=== PATIENT | male | born 1955 | race Caucasian/White ===

== ENCOUNTER 2024-12-06 10:12 | Outpatient (CLI) | payer MEDICARE, OTHER, SELFPAY ==
--- NOTE | ~2024-12-06 | US_ITS ---
EXAMINATION: US renal BI DATE: 12/06/2024 10:33 INDICATION: Chronic kidney disease, stage IIIB TECHNIQUE: Multiple ultrasound grayscale images of the kidneys were obtained. COMPARISON: CT abdomen and pelvis 12/05/2017 FINDINGS: The right kidney measures 9.9 x 6.7 x 6.1 cm. The left kidney measures 11.8 x 6.1 x 7.0 cm. The kidne ys demonstrate normal parenchymal echogenicity. There are cysts in right kidney measuring up to 1.7 c m. There is mild left hydronephrosis. The bladder is not well distended. There is a right pleural eff usion. IMPRESSION: 1. Normal kidney sizes. Mild left hydronephrosis. 2. Right pleural effusion. Reviewed, dictated and finalized at location A. ENT DEVELOPMENT SPECIALIST
== END 2024-12-06 10:13 | disposition home or self-care (01) ==
LOC: MICIMG 10:13
PROVIDERS: PCP Registered Nurse; Visit Provider Internal Medicine Nephrology
DX: N18.32 Chronic kidney disease, stage 3b (principal); N13.30 Unspecified hydronephrosis; J90 Pleural effusion, not elsewhere classified
CPT/HCPCS: 76775

== ENCOUNTER 2024-12-18 12:08 | Emergency (ER) | payer MEDICARE, OTHER, SELFPAY ==
[2024-12-18 12:09] VITALS: BP 175/99; PULSE 98; RESP 16; TEMP 36.6; O2SAT 98
[2024-12-18 15:00] LABS: Basophils Percent Auto 0.3 % (0.2-1.2); Eosinophils Percent Auto 0.2 % (0-4.4); Hematocrit 38.9 % (42.0-52.0); Hemoglobin 13.5 g/dL (14.0-18.0); Immature Granulocyte Absolute 0.04 K/mm3 (0.00-0.031); Immature Granulocyte Percent A 0.6 % (0-0.5); Lymphocytes Absolute Auto 0.67 K/mm3 (0.9-3.2); Lymphocytes Percent Auto 10.5 % (18.3-44.2); Mean Corpuscular HGB Conc 34.7 g/dl (32-36); Mean Corpuscular Hemoglobin 32.3 pg (26-34); Mean Corpuscular Volume 93.1 fl (80-100); Monocytes Absolute Auto 0.6 K/mm3 (0.1-0.6); Monocytes Percent Auto 9.4 % (2.6-8.5); Neutrophils Absolute Auto 5.1 K/mm3 (1.3-6.7); Platelet Count Result 273 k/mm3 (150-375); Red Blood Count 4.18 M/mm3 (4.6-6.20); Red Cell Distribution Width 13.2 % (11.5-14.5); White Blood Count 6.4 K/mm3 (4.5-10.0)
[2024-12-18 15:10] LABS: INR 0.9; Prothrombin Time 13.1 Seconds (11.1-14.7)
[2024-12-18 15:11] LABS: Partial Thromboplastin Time 28.6 Seconds (22.3-36.8)
[2024-12-18 15:24] LABS: Alanine Aminotransferase 55 U/L (6-50); Albumin Level 2.3 g/dL (3.5-5.1); Alkaline Phosphatase 129 U/L (38-126); Anion Gap 7 mmol/L (4-12); Aspartate Amino Transferase 84 U/L (17-59); Bilirubin,Total 0.4 mg/dL (0.2-1.3); Blood Urea Nitrogen 45 mg/dL (9-20); Carbon Dioxide 23 mmol/L (22-30); Chloride 111 mmol/L (98-107); Estimated CRCL calculation 23 ml/min; Estimated Glomerular Filt Rate 24; Glucose 131 mg/dL (65-110); Potassium 3.2 mmol/L (3.4-5.0); Sodium 141 mmol/L (137-145)
--- NOTE | 2024-12-18 15:31 | ED.WEAKNESS ---
HPI - Weakness General Chief complaint: Weakness Stated complaint: weakness Time Seen by Provider: 12/18/24 14:31 Source: patient Mode of arrival: wheelchair Limitations: no limitations History of Present Illness HPI Narrative: This is a 69 year old male that presents to the ER for generalized weakness. Reports abdominal pain that has been ongoing over the last several weeks. Reports he was told he needed his gallbladder removed, but his kidney function is not good enough to do this. Reports he has had worsening kidney failure. He sees Dr. Palumbo. Reports he feels very weak and he is having difficulty taking care of himself. Related Data Home Medications ?Medication ?Instructions ?Recorded ?Confirmed ?Last Taken ?Type amlodipine 5 mg tablet 10 mg PO DAILY 11/16/24 11/21/24 Unknown History aspirin 81 mg tablet,delayed 81 mg PO DAILY 11/16/24 11/21/24 Unknown History release atorvastatin 80 mg tablet 80 mg PO DAILY 11/16/24 11/21/24 Unknown History cholecalciferol (vitamin D3) 50 50 mcg PO DAILY 11/16/24 11/21/24 Unknown History mcg (2,000 unit) capsule clobetasol 0.05 % topical ointment 1 applic topical DAILY 11/16/24 11/21/24 Unknown History duloxetine 60 mg capsule,delayed 60 mg PO ONCE 11/16/24 11/21/24 Unknown History release fenofibrate nanocrystallized 145 145 mg PO DAILY 11/16/24 11/21/24 Unknown History mg tablet insulin glargine U-300 conc 300 30 unit subcut QHS 11/16/24 11/21/24 Unknown History unit/mL (1.5 mL) subcutaneous pen (Toublaso SoloStar U-300 Insulin) losartan 100 mg tablet 100 mg PO DAILY 11/16/24 11/21/24 Unknown History metoprolol succinate 50 mg mg PO 11/16/24 11/21/24 Unknown History tablet,extended release 24 hr multivit with [id number] cap PO 11/16/24 11/21/24 Unknown History 3,6,9 no.3 400 mcg-300 mcg capsule nitroglycerin 0.4 mg/hr 1 patch transdermal DAILY 11/16/24 11/21/24 Unknown History transdermal 24 hour patch (Nitro-Dur) omeprazole 40 mg capsule,delayed 40 mg PO DAILY 11/16/24 11/21/24 Unknown History release trazodone 150 mg tablet 100 mg PO DAILY 11/16/24 11/21/24 Unknown History triamcinolone acetonide 0.1 % topical 11/16/24 11/21/24 Unknown History topical ointment Allergies Allergy/AdvReac Type Severity Reaction Status Date / Time adhesive tape Allergy Rash Verified 11/16/24 11:06 latex Allergy Irritable Verified 11/16/24 11:06 Review of Systems Review of Systems: CONSTITUTIONAL: Denies fever CARDIOVASCULAR: Denies chest pain RESPIRATORY: Denies dyspnea. GASTROINTESTINAL: Reports abdominal pain, nausea, vomiting All systems reviewed & are unremarkable except as noted in HPI and below PMFSH Past Medical History Medical History Skin cancer (melanoma) Kidney disease Family History Family History Father Heart disease Hypertension Mother Heart disease Hypertension Cerebrovascular accident Sibling Abnormal results of thyroid function studies Social History Social History Smoking status: Never smoker Tobacco type: cigarettes Substance use type: marijuana Do You Feel Safe in your Home?: Yes Lack of Transportation: No Lack of Food: Never True Current Housing: I Have Housing Concerned About Future Housing: No Difficulty Paying Gas/Electric Bills: No Difficulty Paying for Meds: Decline to Answer Currently Unemployed: No Difficulty w/ Childcare or Family Care: Decline to Answer Exam Narrative: GENERAL: Chronically ill-appearing, well-nourished, and in no acute distress. HEAD: Normocephalic, atraumatic. EYES: EOMI. ENT: Nares clear, no rhinorrhea or epistaxis. Mucous membranes moist. Oropharynx without tonsillar hypertrophy exudate or other lesions. NECK: Supple. No adenopathy or masses. No JVD CHEST: Clear to auscultation. No respiratory distress. No wheezes rales or rhonchi HEART: Regular rate and rhythm. No murmur heard. Normal peripheral pulses. ABDOMEN: Soft, nondistended, normal active bowel sounds. Mild tenderness to palpation in the epigastrium, without guarding EXTREMITIES: Normal range of motion. No edema. SKIN: Warm, dry, no rash. NEURO: No focal deficits. Alert and oriented x3. PSYCH: Normal mood and affect Course Course Emergency Course: patient and family updated on his workup. We did speak about further inpatient versus outpatient management. I do feel patient is stable for further outpatient management with his established specialists. We also spoke about getting a referral for PT/OT evaluation Vital Signs Vital signs: Vital Signs Temperature 97.8 F 12/18/24 12:09 Pulse Rate 98 12/18/24 12:09 Respiratory Rate 16 12/18/24 12:09 Blood Pressure 175/99 H 12/18/24 12:09 Pulse Oximetry 98 12/18/24 12:09 Temperature 97.8 F 12/18/24 12:09 Pulse Rate 81 12/18/24 18:18 Respiratory Rate 17 12/18/24 18:18 Blood Pressure 162/80 H 12/18/24 18:18 Pulse Oximetry 97 12/18/24 18:18 MDM - Weakness MDM Narrative Medical decision making narrative: Patient presents to the emergency department for generalized weakness, abdominal pain. This seems to be largely a chronic problem for him. He does have history of chronic kidney disease. Follows with nephrology. He also reports he has been having trouble with his gallbladder and is currently seeing a general surgeon for this. He is afebrile and nontoxic appearing. His vitals are stable. CBC without leukocytosis. Metabolic panel with kidney function that appears around baseline. Patient's potassium mildly low, given a dose in the ER. Magnesium is normal. Mild transaminitis noted. Lipase is normal. Urine without evidence of infection. Chest x-ray without acute cardiopulmonary abnormality. CT abdomen and pelvis shows ascites, tiny stone in the left kidney. Slightly thickened wall of gallbladder. Slightly thickened wall of urinary bladder. patient and family updated on his workup. We did speak about further inpatient versus outpatient management. I do feel patient is stable for further outpatient management with his established specialists. We also spoke about getting a referral for PT/OT evaluation. Most of his complaints are chronic/ongoing. He does report he is following with a general surgeon for his gallbladder. Ambulatory in the ED without difficulty. He was given warnings to return to the ER Differential Diagnosis Differential diagnosis: Likely anemia, hypoglycemia, dehydration and other (Deconditioning, biliary colic, chronic kidney disease, electrolyte derangement) Lab Data Attestation: I reviewed the patient's lab results. 12/18/24 14:53 12/18/24 14:53 Labs: Lab Results 12/18/24 12/18/24 12/18/24 Range/Units 14:51 14:53 15:42 WBC 6.4 (4.5-10.0) K/mm3 RBC 4.18 L (4.6-6.20) M/mm3 Hgb 13.5 L (14.0-18.0) g/dL Hct 38.9 L (42.0-52.0) % MCV 93.1 (80-100) fl MCH 32.3 (26-34) pg MCHC 34.7 (32-36) g/dl RDW 13.2 (11.5-14.5) % Plt Count 273 (150-375) k/mm3 MPV 10.0 (7.4-10.4) fl Immature Gran % (Auto) 0.6 H (0-0.5) % Neut % (Auto) 79.0 H (45.5-73.1) % Lymph % (Auto) 10.5 L (18.3-44.2) % [place] % (Auto) 9.4 H (2.6-8.5) % Eos % (Auto) 0.2 (0-4.4) % Baso % (Auto) 0.3 (0.2-1.2) % Lymph # (Auto) 0.67 L (0.9-3.2) K/mm3 [place] # (Auto) 0.6 (0.1-0.6) K/mm3 Eos # (Auto) 0.0 (0-0.3) K/mm3 Baso # (Auto) 0.0 (0.0-0.1) K/mm3 Abs Immat Gran (auto) 0.04 H (0.00-0.031) K/mm3 Absolute Neuts (auto) 5.1 (1.3-6.7) K/mm3 Absolute Nucleated RBC 0.000 (0.0-0.012) K/mm3 Nucleated RBC % 0.0 (0.0-0.2) % PT 13.1 (11.1-14.7) Seconds INR 0.9 APTT 28.6 (22.3-36.8) Seconds Sodium 141 (137-145) mmol/L Potassium 3.2 L (3.4-5.0) mmol/L Chloride 111 H (98-107) mmol/L Carbon Dioxide 23 (22-30) mmol/L Anion Gap 7 (4-12) mmol/L BUN 45 H (9-20) mg/dL Creatinine 2.65 H (0.7-1.3) mg/dL Estim Creat Clear Calc 23 ml/min Estimated GFR 24 L (59 - ) Glucose 131 H (65-110) mg/dL Calcium 8.0 L (8.4-10.2) mg/dL Magnesium 1.9 (1.6-2.3) mg/dL Total Bilirubin 0.4 (0.2-1.3) mg/dL AST 84 H (17-59) U/L ALT 55 H (6-50) U/L Alkaline Phosphatase 129 H (38-126) U/L Total Protein 6.0 L (6.3-8.2) g/dL Albumin 2.3 L (3.5-5.1) g/dL Lipase 251 (23-300) U/L Urine Color Yellow (Yellow) Urine Appearance Clear (Clear) Urine pH 6.5 (5.0-9.0) Ur Specific [place] 1.022 (1.001-1.035) Urine Protein 4+ H (Negative) mg/dL Urine Glucose (UA) 2+ H (Negative) mg/dL Urine Ketones Trace H (Negative) mg/dL Ur Blood (Man) 1+ H (Negative) Urine Nitrate Negative (Negative) Urine Bilirubin Negative (Negative) Urine Urobilinogen 0.2 (<2.0) mg/dL Leukocyte Esterase Rfl Negative (Negative) NIKKI/UL Urine RBC 3-5 H (0-2) /hpf Urine WBC 0-5 (0-3) /hpf Ur Squamous Epith Cells None seen (Few) /hpf Urine Bacteria None seen /hpf Urine Casts 11-20 Hyaline Casts Present (None) /lpf Imaging Data Radiologist's impression: ITS Impressions Chest X-Ray 12/18/24 15:18 IMPRESSION: No acute cardiopulmonary pathology. Abdomen/Pelvis CT 12/18/24 16:39 IMPRESSION: 1. Ascites. 2. Tiny stone in the left kidney midpole. 3. No evidence of appendicitis, diverticulitis or intestinal obstruction. 4. Slightly thickened wall of the gallbladder. Cholecystitis cannot be excluded. Possibility of sludge in the gallbladder also not excluded. Ultrasound evaluation advised. 5. Slightly thickened wall of the urinary bladder. Evaluation for cystitis is advised. Critical Care Time Critical Care Time Critical Care Time: No Discharge Plan Discharge Clinical Impression: Chronic kidney disease (CKD), Biliary colic, Generalized weakness Patient Disposition: Home, Self-Care Condition: Stable Instructions: Antibiotic Form, Biliary Colic (ED), Chronic Kidney Disease (ED) Additional Instructions: Return to the ER if you experience fever, worsening abdominal pain with nausea and vomiting, you are unable to keep down liquids or solids, or any other symptoms that are concerning to you Remain well hydrated. Continue home medications as prescribed Follow up with your general surgeon and or manager for further care Follow up with your primary care doctor for referral for PT/OT evaluation if you have any trouble with my referral Patient Language: Citizen Of [place] Prescriptions: No Action losartan 100 mg tablet 100 mg PO DAILY triamcinolone acetonide 0.1 % ointment topical omeprazole 40 mg capsule,delayed release(DR/EC) 40 mg PO DAILY atorvastatin 80 mg tablet 80 mg PO DAILY amlodipine 5 mg tablet 10 mg PO DAILY metoprolol succinate 50 mg tablet extended release 24 hr PO duloxetine 60 mg capsule,delayed release(DR/EC) 60 mg PO ONCE trazodone 150 mg tablet 100 mg PO DAILY insulin glargine U-300 conc [Toujeo SoloStar U-300 Insulin] 300 unit/mL (1.5 mL) insulin pen 30 unit subcut QHS cholecalciferol (vitamin D3) 50 mcg (2,000 unit) capsule 50 mcg PO DAILY aspirin 81 mg tablet,delayed release (DR/EC) 81 mg PO DAILY clobetasol 0.05 % ointment 1 applic topical DAILY fenofibrate nanocrystallized 145 mg tablet 145 mg PO DAILY [id number] 3,6,9 #3 400-300 mcg capsule PO nitroglycerin [Nitro-Dur] 0.4 mg/hr patch 24 hour 1 patch transdermal DAILY Rx Instructions: allow nitrate-free interval of approx. 10-12 hrs per 24-hour period Other Ambulatory Orders: OT Outpatient Eval and Treat (ONCE) Timeframe: 20241225 Location: Determined by Patient Ordered By: Ricarda Galindo PT Outpatient Eval and Treat (ONCE) Timeframe: 20241225 Location: Determined by Patient Ordered By: Ricarda Galindo Follow-up/Referrals: Gloria,JAVID Lewis [Primary Care Provider] -
[2024-12-18 15:55] LABS: Lipase 251 U/L (23-300); Magnesium 1.9 mg/dL (1.6-2.3)
[2024-12-18 16:09] LABS: Add Urine Microscopic? YES; Appearance Urine Clear (Clear); Bacteria Urine None Seen /hpf; Bilirubin Urine Negative (Negative); Blood Urine 1+ (Negative); Color Urine Yellow (Yellow); Glucose Urine UA 2+ mg/dL (Negative); Hyaline Casts Urine Present /lpf; Ketones Urine Trace mg/dL (Negative); Leukocyte Esterase Ur Negative LEU/UL (Negative); Nitrate Urine Negative (Negative); Protein Urine 4+ mg/dL (Negative); Specific Grav Ur 1.022 (1.001-1.035); Squamous Epithelial Cell Urine None Seen /hpf (Few); Urobilinogen Urine 0.2 mg/dL (<2.0); WBC Urine 0-5 /hpf (0-3); pH Urine 6.5 (5.0-9.0)
[2024-12-18] MEDS: POTASSIUM CHLORIDE 20 MEQ ER TABLET 40 MEQ PO (17:14)
[2024-12-18 17:17] VITALS: BP 172/101; PULSE 84; RESP 20; O2SAT 99
[2024-12-18] MEDS: MORPHINE SULFATE (*CRX) 2 MG/ML INJ IV PUSH (17:22)
[2024-12-18] MEDS: ONDANSETRON INJ 4 MG/2 ML VIAL IV PUSH (17:22)
[2024-12-18 18:18] VITALS: BP 162/80; PULSE 81; RESP 17; O2SAT 97
[2024-12-18] MEDS: SODIUM CHLORIDE 0.9% IV 500 ML 999 ML IV CONT (18:36)
== END 2024-12-18 21:23 | disposition home or self-care (01) ==
PROVIDERS: Emergency Provider Physician Assistant; PCP Registered Nurse
DX: N18.9 Chronic kidney disease, unspecified (principal); K80.50 Calculus of bile duct without cholangitis or cholecystitis without obstruction; R53.1 Weakness; Z85.820 Personal history of malignant melanoma of skin; R93.41 Abnormal radiologic findings on diagnostic imaging of renal pelvis, ureter, or bladder; R18.8 Other ascites; N20.0 Calculus of kidney; R94.31 Abnormal electrocardiogram [ECG] [EKG]
CPT/HCPCS: 36415; 71045; 74176; 80053; 81001; 83690; 83735; 85025; 85610; 85730; 93005; 96374; 96375; 99284; A9270; J2270; J2405; J7040